=== PATIENT | female | born 1995 | race Caucasian/White ===

== ENCOUNTER 2017-04-24 19:54 | Emergency (ER) | payer SELFPAY ==
[~2017-04-24] VITALS: Ht 160 cm; Wt 69.6 kg
[~2017-04-24 19:54] MED LIST: IBUP100S PO
[2017-04-24 20:08] VITALS: BP 117/61; PULSE 126; RESP 20; TEMP 101.7; O2SAT 98
[2017-04-24] MEDS ORDERED: SULF20OR2 PO (21:46)
--- NOTE | 2017-04-24 21:46 | PD ---
HPI Chief Complaint: Skin Problem Time Seen by Provider: 21:39 Travel History International Travel<30 days: No Contact w/Intl Traveler<30days: No Traveled to known affect area: No History of Present Illness HPI The patient is a 21-year-old female that had a piercing done and she is experiencing redness around the area as well as drainage from the piercing on her left nipple. The right nipple starting to experience drainage as well. She has had a fever and a headache. She denies any sore throat, ear pain, cough , nausea, vomiting or diarrhea. She is not . The patient states she cannot take pills. She needs liquid antibiotic. PFSH Past Medical History Medical History: Denies Significant Hx Diminished Hearing: No Tetanus Vaccination: < 5 Years Influenza Vaccination: No ?: Not LMP: has iud, irr Past Surgical History Ear Surgery: Yes (tubes placed & removed) Social History Alcohol Use: Yes (occassionally ) Tobacco Use: No Substance Use: No Allergies-Medications (Allergen,Severity, Reaction): Coded Allergies: No Known Allergies (Unverified Adverse Reaction, Unknown, 04/24/17) Reported Meds & Prescriptions Reported Meds & Active Scripts Active No Active Prescriptions or Reported Medications Review of Systems Except as stated in HPI: all other systems reviewed are Neg Physical Exam Narrative GENERAL: The patient is alert, oriented 3 in slight apparent distress with her headache and nipple discomfort. Her vital signs show temperature 11.7 with heart rate of 126 but are otherwise normal. SKIN: Focused skin assessment warm/dry. There is pus coming from the left nipple around the piercing and there is cellulitis around that nipple extending for approximately 7 cm diameter. HEAD: Atraumatic. Normocephalic. EYES: Pupils equal and round. No scleral icterus. No injection or drainage. ENT: No nasal bleeding or discharge. Mucous membranes pink and moist. NECK: Trachea midline. No JVD. CARDIOVASCULAR: Regular rate and rhythm. No murmur appreciated. RESPIRATORY: No accessory muscle use. Clear to auscultation. Breath sounds equal bilaterally. GASTROINTESTINAL: Abdomen soft, non-tender, nondistended. Hepatic and splenic margins not palpable. MUSCULOSKELETAL: No obvious deformities. No clubbing. No cyanosis. No edema. NEUROLOGICAL: Awake and alert. No obvious cranial nerve deficits. Motor grossly within normal limits. Normal speech. PSYCHIATRIC: Appropriate mood and affect; insight and judgment normal. Data Data Last Documented VS Vital Signs Date Time Temp Pulse Resp B/P (MAP) Pulse Ox O2 Delivery O2 Flow Rate FiO2 04/24/17 20:08 101.7 126 20 117/61 (79) 98 MDM Medical Decision Making Medical Screen Exam Complete: Yes Emergency Medical Condition: Yes Medical Record Reviewed: Yes Differential Diagnosis Cellulitis left nipple, infected piercing, abscess breast, lymphadenitis Narrative Course The patient does have an infected piercing was cellulitis of the left nipple/ breast. The patient also had bilateral nipple piercing removal. Procedures Procedure Narrative Both piercings were removed. They were removed without much difficulty. Pus was recovered and was expressed from both nipples after the piercing was removed. The patient tolerated procedure well. Diagnosis Primary Impression: Cellulitis of left breast Additional Instructions: As we discussed, use warm compresses 4 times daily. Alternatively a heating pad can be used but turned on its lowest setting an interpose a towel between your skin and the pad to avoid martin warmth is useful but hot does not improve results and can be dangerous. Return to emergency department if worse. The antibiotic is 20 cc 4 times daily for 10 days. Med/Other Pt SpecificInfo: Prescription(s) given Scripts Sulfamethoxazole-Trimethoprim Liq (Sulfamethoxazole-Trimethoprim Liq) 200-40 Mg/ 5 Ml Susp 20 ML PO Q12H for Infection for 10 Days, #400 ML 0 Refills Prov: Bernard Wong MD 04/24/17 Disposition: 01 DISCHARGE HOME Condition: Stable Bernard Wong MD Apr 24, 2017 21:46
[2017-04-24] MEDS ORDERED: SULFAMETHOXAZOLE-TRIMETHOPRIM 800-160 MG/20 ML UDC PO ONE (22:00)
[2017-04-24] MEDS ORDERED: ACETAMINOPHEN 500 MG CPLT PO ONE (22:00)
[2017-04-24] MEDS ORDERED: ACETAMINOPHEN 325 MG/10.15 ML UDC PO ONE (22:15)
== END 2017-04-24 22:26 | disposition home or self-care (01) ==
LOC: PHED 19:54 → PHEFT 22:26
DX: N61.0 Mastitis without abscess (principal); S20.152A Superficial foreign body of breast, left breast, initial encounter; S20.151A Superficial foreign body of breast, right breast, initial encounter; R50.9 Fever, unspecified; R51 Headache; W26.8XXA Contact with other sharp object(s), not elsewhere classified, initial encounter
CPT/HCPCS: 10120